=== PATIENT | female | born 1990 | race Asian ===

== ENCOUNTER 2019-03-25 13:28 | Emergency (ER) | payer BC, OTHER ==
[~2019-03-25] VITALS: Ht 157.5 cm; Wt 71.7 kg
[~2019-03-25 13:28] MED LIST: ACET-868 PO; ALBU8.5H4 IH; AMPH20TA3; BECL8.7A5 IH; DIAZ2TAB; GABA300C; MELO-105 PO
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
--- NOTE | 2019-03-25 13:33 | NUR ---
ARBEN GALAVIZ AT BEDSIDE
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
[2019-03-25] MEDS ORDERED: ONDANSETRON HCL/PF 4 MG/2 ML VIAL ONE (14:00)
[2019-03-25] MEDS ORDERED: IV NS 0.9% 1,000 ML BAG IV ONE (14:00)
[2019-03-25] MEDS ORDERED: ONDANSETRON HCL/PF - ER 4 MG/2 ML VIAL IV ONE (14:00)
[2019-03-25] MEDS ORDERED: ACTIVATED CHARCOAL 25 GM/120 ML TUBE ONE (14:00)
[2019-03-25] MEDS ORDERED: ACTIVATED CHARCOAL 25 GM/120 ML TUBE PO ONE (14:00)
[2019-03-25 14:05] LABS: BASOPHILS % (AUTO) 0.7 % (0.0-2.0); EOSINOPHILS % (AUTO) 1.6 % (0.0-6.0); HEMATOCRIT 43 % (33-45); HEMOGLOBIN 14.2 g/dL (11.5-14.8); LYMPHOCYTES # (AUTO) 1.6 /CMM (0.8-4.8); LYMPHOCYTES % (AUTO) 27.6 % (20.0-44.0); MEAN CORPUSCULAR HGB CONC 33 g/dl (31.0-36.0); MEAN CORPUSCULAR VOLUME 88 fL (82-100); MONOCYTES # (AUTO) 0.3 /CMM (0.1-1.30); MONOCYTES % (AUTO) 6.1 % (2.0-12.0); NEUTROPHILS # (AUTO) 3.6 /CMM (1.8-8.9); PLATELET COUNT (AUTO) 157 /CMM (150-450); RED BLOOD CELL COUNT(AUTO) 4.87 MIL/uL (4.0-5.2); WHITE BLOOD COUNT (AUTO) 5.7 K/uL (4.3-11.0)
[2019-03-25 14:07] LABS: CALCIUM, SERUM 9.3 mg/dL (8.5-10.1); CARBON DIOXIDE 22 mmol/L (21-32); CHLORIDE 104 mmol/L (98-107); CREATININE 0.6 mg/dL (0.6-1.3); GLUCOSE 89 mg/dL (74-106); SODIUM SERUM 139 mmol/L (136-145); UREA NITROGEN, BLOOD 7 mg/dL (7-18)
[2019-03-25 14:08] LABS: POTASSIUM 4.1 mmol/L (3.5-5.1)
[2019-03-25 14:13] LABS: ALANINE AMINOTRANSFERASE 16 U/L (12-78); ALBUMIN 3.9 g/dL (3.4-5.0); ALCOHOL, BLOOD < 3 mg/dL (0-0); ALKALINE PHOSPHATASE 68 U/L (46-116); ASPARTATE AMINOTRANSFERASE 32 U/L (15-37); BILIRUBIN,TOTAL 0.5 mg/dL (0.2-1.0)
[2019-03-25 14:14] LABS: ACETAMINOPHEN 0 ug/ml (10-30); SALICYLATE 1.3 mg/dL (2.8-20.0)
--- NOTE | 2019-03-25 15:32 | NUR ---
PATIENT IN BED ASLEEP, EASILY AROUSABLE BY VOICE. DENIES PAIN. HOOKED TO MONITOR, KEPT SAFE, WARM AND COMFORTABLE. SITTER AT BEDSIDE
--- NOTE | 2019-03-25 17:19 | NUR ---
SPOKE TO OF POISON CONTROL. ASKED ABOUT PATIENT CLINICALS AND UPDATE. NO ADDITIONAL RECOMMENDATION AND CONTINUE 6HOURS OBSERVATION. CALLBACK #:
--- NOTE | 2019-03-25 18:12 | NUR ---
PATIENT IN BED AWAKE. DENIES PAIN. HOOKED TO MONITOR, KEPT SAFE, WARM AND COMFORTABLE. SITTER AT BEDSIDE, VSS, WILL CONTINUE TO MONITOR ACCORDINGLY
--- NOTE | 2019-03-25 19:09 | NUR ---
RECRUITMENT MANAGER BRENDA LEO AT BEDSIDE
--- NOTE | 2019-03-25 19:17 | NUR ---
REPORT GIVEN TO GLENN CAMERON FOR GHULAM
--- NOTE | 2019-03-25 20:29 | NUR ---
PT verbalized she feels better, mother at bedside. Pt released under the care of mother. Pt does not verbalize suicidal ideation anymore. Patient discharged to home in stable condition. Written and verbal after care instructions given. Patient verbalizes understanding of instruction. IV removed. Catheter intact and site benign. Pressure and 4x4 applied to site. No bleeding noted. PT ambulatory with a steady gait.
[2019-03-25 22:00] VITALS: BP 138/82
== END 2019-03-25 20:30 | disposition home or self-care (01) ==
LOC: ER 13:30
DX: S50.812A Abrasion of left forearm, initial encounter (principal); T14.91XA Suicide attempt, initial encounter; T43.592A Poisoning by other antipsychotics and neuroleptics, intentional self-harm, initial encounter; R11.0 Nausea; F12.90 Cannabis use, unspecified, uncomplicated; F17.200 Nicotine dependence, unspecified, uncomplicated; J45.909 Unspecified asthma, uncomplicated; M79.7 Fibromyalgia; F32.9 Major depressive disorder, single episode, unspecified; Z98.890 Other specified postprocedural states; Z91.040 Latex allergy status; Z79.899 Other long term (current) drug therapy; X78.8XXA Intentional self-harm by other sharp object, initial encounter; Y92.89 Other specified places as the place of occurrence of the external cause; Y93.89 Activity, other specified; Y99.8 Other external cause status
CPT/HCPCS: 36415; 80048; 80076; 80305; 80307; 80329; 84702; 85025; 93005 ×2; 96374; 99284; A6403; G0480; J2405 ×2; J7030 ×2